=== PATIENT | female | born 1970 | race Caucasian/White ===

== ENCOUNTER 2017-02-09 10:13 | Outpatient (CLI) | payer OTHER ==
--- NOTE | 2017-02-09 12:00 | DIAGNOSTIC IMAGING REPORT ---
PROCEDURE: MG BILATERAL SCREENING W/CAD INDICATION: SCREENING TECHNIQUE: Bilateral CC and MLO digital views. COMPARISON: None available. FINDINGS: Computer-aided detection applied. Moderately dense. There are 1.8 and 0.7 cm nodular densities in the lateral right breast (0930 position, middle third). There is a 1.3 cm nodular density in the lateral left breast (0330 position middle third). IMPRESSION: 1. There are bilateral nodular densities in the breasts which most likely represent cysts. Comparison with prior outside mammograms is recommended. These will be sent for. If and when these become available, an addendum can be issued this report. RESULT CODE: 0- Prior images needed. A. A negative report should not delay biopsy if a dominant or clinically suspicious mass is present. 10-15% of cancers are not identified by x-ray. B. A negative report may reinforce clinical impression. C. Adenosis and dense breasts may obscure an underlying neoplasm. D. False positive reports average 6-10%. E.. A yearly screening mammogram is recommended. A reminder letter will be scheduled.
== END 2017-02-09 23:00 ==
LOC: MAM SRH 10:13
DX: Z12.31 Encounter for screening mammogram for malignant neoplasm of breast (principal)

== ENCOUNTER 2017-03-01 13:40 | Outpatient (CLI) | payer OTHER ==
--- NOTE | 2017-03-01 15:27 | DIAGNOSTIC IMAGING REPORT ---
PROCEDURE: MG BILATERAL DIAGNOSTIC W/CAD INDICATION: EVALUATE DENSITIES SEEN ON SCREENING TECHNIQUE: Spot compression CC and MLO views of each breast. Bilateral direct lateral mammograms. CAD was used. The patient then went on to ultrasound where vega scale and color Doppler sonographic imaging of each breast was performed. COMPARISON: 02/09/2017, 10/07/2009 FINDINGS: Mammograms: With focal spot compression, the bone rounded nodular densities are present in the upper outer aspects of each breast. Smooth borders can be seen circumferentially in many of the lesions. There is no unusual architectural distortion or clustered microcalcification associated with any of these lesions or in either breast. Ultrasound: Right breast: There is a band of dense fibrocystic tissue in the lateral aspect of the right breast which contains a multiple cysts, most sub-centimeter. There is a dominant simple cyst in the upper outer quadrant measuring 2.2 x 1.7 x 0.9 cm. Left breast: Fibrocystic bands are seen throughout the breast. Multiple cysts are visible, the largest measuring the largest measuring 1.4 cm at the 3 o'clock position. In the nine o'clock anterior left breast, fibrous bands contain ductal ectasia as well as multiple discrete cysts. About a 3 cm from the nipple , there is a new 3 x 3 x 5 mm cystic structure with low level internal echoes adjacent to a focus of multiple clustered cysts. There is no internal vascularity or suspicious shadowing. No discrete solid nodule in either breast. No suspicious shadowing or vascularity. IMPRESSION: 1. Fibrocystic breasts with multiple cysts and ductal ectasia. 2. A 5 mm mildly complex cyst in the 9 o'clock anterior left breast, probably proteinaceous cyst, but may indicate underlying apocrine metaplasia. 6-month follow-up ultrasound of the left breast is recommended to assess stability. 3. No suspicious solid lesions. 4. Findings and recommendations were discussed with the patient. RESULT CODE: 3- Probably benign.
--- NOTE | 2017-03-15 16:02 | DIAGNOSTIC IMAGING REPORT ---
PROCEDURE: US LTD BREAST ULTRASOUND - RT INDICATION: EVALUATE DENSITIES SEEN ON SCREENING TECHNIQUE: Spot compression CC and MLO views of each breast. Bilateral direct lateral mammograms. CAD was used. The patient then went on to ultrasound where vega scale and color Doppler sonographic imaging of each breast was performed. ? COMPARISON: 02/09/2017, 10/07/2009 ? FINDINGS: Mammograms: With focal spot compression, the bone rounded nodular densities are present in the upper outer aspects of each breast. Smooth borders can be seen circumferentially in many of the lesions. There is no unusual architectural distortion or clustered microcalcification associated with any of these lesions or in either breast. ? Ultrasound: Right breast: There is a band of dense fibrocystic tissue in the lateral aspect of the right breast which contains a multiple cysts, most sub-centimeter. There is a dominant simple cyst in the upper outer quadrant measuring 2.2 x 1.7 x 0.9 cm. ? Left breast: Fibrocystic bands are seen throughout the breast. Multiple cysts are visible, the largest measuring the largest measuring 1.4 cm at the 3 o'clock position. In the nine o'clock anterior left breast, fibrous bands contain ductal ectasia as well as multiple discrete cysts. About a 3 cm from the nipple, there is a new 3 x 3 x 5 mm cystic structure with low level internal echoes adjacent to a focus of multiple clustered cysts. There is no internal vascularity or suspicious shadowing. ? No discrete solid nodule in either breast. No suspicious shadowing or vascularity. ? IMPRESSION: 1. Fibrocystic breasts with multiple cysts and ductal ectasia. 2. A 5 mm mildly complex cyst in the 9 o'clock anterior left breast, probably proteinaceous cyst, but may indicate underlying apocrine metaplasia. 6-month follow-up ultrasound of the left breast is recommended to assess stability. 3. No suspicious solid lesions. 4. Findings and recommendations were discussed with the patient. ? RESULT CODE: 3- Probably benign. A. A negative report should not delay biopsy if a dominant or clinically suspicious mass is present. 10-15% of cancers are not identified by x-ray. B. A negative report may reinforce clinical impression. C. Adenosis and dense breasts may obscure an underlying neoplasm. D. False positive reports average 6-10%. E.. A yearly screening mammogram is recommended. A reminder letter will be scheduled.
== END 2017-03-01 23:00 ==
LOC: MAM SRH 13:40
DX: N60.12 Diffuse cystic mastopathy of left breast (principal); N60.42 Mammary duct ectasia of left breast; N60.02 Solitary cyst of left breast